=== PATIENT | male | born 2000 | race African-American/Black ===

== ENCOUNTER 2023-11-28 16:53 | Emergency (ER) | payer MEDICAID ==
[~2023-11-28] VITALS: Ht 162.6 cm; Wt 57.0 kg
[2023-11-28 17:00] VITALS: O2SAT 100
[2023-11-28 17:38] LABS: CLARITY URINE CLOUDY (CLEAR); COLOR URINE YELLOW (YELLOW); GLUCOSE URINE NEGATIVE (NEGATIVE); KETONES URINE NEGATIVE (NEGATIVE); LEUKOCYTE ESTERASE URINE 3+ (NEGATIVE); NITRITE URINE NEGATIVE (NEGATIVE); OCCULT BLOOD URINE TRACE (NEGATIVE); PH URINE 6.5 (4.5-8.0); PROTEIN URINE NEGATIVE (NEGATIVE); SPECIFIC GRAVITY URINE 1.003 (1.005-1.030); UROBILINOGEN URINE 0.2 E.U./dL (0.2-1.0)
[2023-11-28 17:53] LABS: BACTERIA URINE 1+; RBC URINE 0-2 /hpf (0-2); SQUAMOUS EPITHELIAL CELL URINE 1+ /lpf (RARE/1+)
[2023-11-28 17:54] LABS: WBC URINE TNTC /hpf (0-2)
[2023-11-28] MEDS ORDERED: DOXY100T2 MT (18:29)
[2023-11-28] MEDS: LIDOCAINE HCL/PF 1% 10 MG/ML 5ML VIAL INFIL ONE (18:46)
[2023-11-28] MEDS: CEFTRIAXONE SODIUM 500MG VIAL IM ONE (18:46)
[2023-11-28 18:49] VITALS: BP 128/79; PULSE 100; RESP 20; TEMP 98.3
[2023-12-01 04:07] LABS: CHLAMYDIA TRACHOMATIS NAA Negative (Negative); NEISSERIA GONORRHOEAE NAA Positive (Negative)
== END 2023-11-28 18:50 | disposition home or self-care (01) ==
LOC: ER 16:53
DX: A54.9 Gonococcal infection, unspecified (principal)
CPT/HCPCS: 99283; 87491; 87591; 81003; 87086; 96372; J0696; J3490